=== PATIENT | female | born 1965 | race Caucasian/White ===

== ENCOUNTER → 2017-07-31 | Outpatient (CLI) | payer OTHER ==
--- NOTE | 2017-08-01 12:10 | MM ---
Reason for exam: screening (asymptomatic). Last mammogram was performed 5 years and 1 month ago. History: Patient is postmenopausal. Family history of breast cancer in maternal aunt at age 58. Benign right US cyst aspiration of the right breast, April 18, 2010. Benign US right guided VAD of the right breast, April 18, 2010. Excisional biopsy of the right breast, February 02, 2006. Took hormonal contraceptives for 15 years beginning at age 15. Physical Findings: A clinical breast exam by your physician is recommended on an annual basis and results should be correlated with mammographic findings. MG Screening Mammo w CAD Bilateral CC and MLO view(s) were taken. Prior study comparison: June 19, 2012, bilateral digital screening mammo w/CAD. March 28, 2011, CAD bilateral diagnostic mammogram. The breast tissue is heterogeneously dense. This may lower the sensitivity of mammography. There is a new suspicious mass measuring 7mm containing microcalcifications in the upper outer quadrant at middle depth of the right breast. This is just lateral and posterior to a new area of architectural distortion. No suspicious abnormality in the left breast. Coil shaped right biopsy marker is noted. ASSESSMENT: Incomplete: need additional imaging evaluation, BI-RAD 0 RECOMMENDATION: Special view mammogram of the right breast. If lesion persists on supplemental views, image directed ultrasound is recommended. [facility] will attempt to contact patient to return for supplemental views and ultrasound if indicated.
== END | disposition home or self-care (01) ==
LOC: RADMAMWWP 11:32
PROVIDERS: ATTEND Obstetrics & Gynecology
DX: Z12.31 Encounter for screening mammogram for malignant neoplasm of breast (principal)
CPT/HCPCS: 77067

== ENCOUNTER → 2017-08-08 | Outpatient (CLI) | payer OTHER ==
--- NOTE | 2017-08-08 14:16 | MM ---
Reason for exam: additional evaluation requested from abnormal screening. Last mammogram was performed less than 1 month ago. History: Patient is postmenopausal. Family history of breast cancer in maternal aunt at age 58. Benign right US cyst aspiration of the right breast, April 18, 2010. Benign US right guided VAD of the right breast, April 18, 2010. Excisional biopsy of the right breast, February 02, 2006. Took hormonal contraceptives for 15 years beginning at age 15. Physical Findings: Nurse did not find any significant physical abnormalities on exam. MG Work Up Mamm w CAD RT CC with magnification and LM with magnification view(s) were taken of the right breast. Prior study comparison: July 31, 2017, bilateral MG screening mammo w CAD. June 19, 2012, bilateral digital screening mammo w/CAD. The breast tissue is heterogeneously dense. This may lower the sensitivity of mammography. New grouped heterogeneous calcifications upper outer quadrant right breast. Chronic nodularity right breast upper outer quadrant. No persisting distortion. These results were verbally communicated with the patient and result sheet given to the patient on 08/08/17. ASSESSMENT: Suspicious, BI-RAD 4 RECOMMENDATION: Surgical consultation and stereotactic core biopsy of the right breast. Called Dr. Gomez with mammographic findings and has scheduled an appointment for the patient for 09/13/17 at 9:[address] Fishman. Biopsy scheduled for 08/16/17 at 10:00. PRELIMINARY REPORT CALLED AND FAXED TO DR. FISHMAN ON 08/08/17.
== END | disposition home or self-care (01) ==
LOC: RADMAMWWP 12:31
PROVIDERS: ATTEND Obstetrics & Gynecology
DX: R92.8 Other abnormal and inconclusive findings on diagnostic imaging of breast (principal)
CPT/HCPCS: 77065

== ENCOUNTER → 2017-08-15 | Outpatient (CLI) | payer OTHER ==
--- NOTE | 2017-08-15 11:25 | US ---
EXAMINATION TYPE: US abdomen limited DATE OF EXAM: 08/15/2017 COMPARISON: NONE CLINICAL HISTORY: R74.8 abnormal levels of liver serum enzymes. Difficult exam due to patient's body habitus and overlying bowel gas EXAM MEASUREMENTS: Liver Length: 14.3 cm Gallbladder Wall: 0.2 cm CBD: 0.3 cm Right Kidney: 10.3 x 4.6 x 4.3 cm Pancreas: Obscured by bowel gas, visualized portions slightly hyperechoic Liver: Heterogeneous, echogenic echotexture with diminished visualization of the portal triads and h emidiaphragm. This most commonly represents underlying hepatic steatosis and limits evaluation for un derlying masses. Gallbladder: wnl Evidence for sonographic Weinberg's sign: No CBD: wnl Right Kidney: No hydronephrosis or masses seen IMPRESSION: Hyperechoic hepatic echotexture most commonly related to hepatic steatosis appearing mild to moderate degree.
== END | disposition home or self-care (01) ==
LOC: RADUSWWP 09:54
PROVIDERS: ATTEND Family Medicine
DX: K76.89 Other specified diseases of liver (principal)
CPT/HCPCS: 76705

== ENCOUNTER → 2017-08-16 | Day surgery (SDC) | payer OTHER ==
[2017-08-16 09:04] VITALS: RESP 16; BMI 38.2
[2017-08-16 11:02] VITALS: BP 128/80; PULSE 71; TEMP 98.6
--- NOTE | 2017-08-16 11:42 | MM ---
EXAMINATION TYPE: MG stereo VAD BX RT DATE OF EXAM: 08/16/2017 COMPARISON: Mammogram August 08, 2017 and older studies. CLINICAL HISTORY: Abnormal mammogram, new suspicious group of microcalcifications right breast. TECHNIQUE: Stereotactic guided core biopsy of right breast with clip placement and follow-up two-view mammogram. FINDINGS: The procedure of stereotactic guided core biopsy was explained to the patient. Benefits, alternatives, and risks were discussed. An informed consent was then obtained. The [place] for biopsy was chosen. Shortness pathway was lateral approach. I performed the localization, then performed the remainder of the procedure. Overlying skin is cleansed with Betadine. Lidocaine with bicarbonate is used as anesthetic into the skin. Lidocaine with epinephrine is used as anesthetic into the deeper tissue. A vacuum assisted biopsy gun was used to obtain multiple core samples. The patient tolerated the procedure well without any immediate complication. The patient was kept in the radiology department for short stay after the procedure and then discharged home in stable condition. Targeted calcifications are identified in specimen mammogram. Post biopsy mammogram shows the clip to appear in satisfactory position relative to the targeted area of concern on the preprocedure images. No residual calcifications are identified. IMPRESSION: SUCCESSFUL, UNCOMPLICATED STEREOTACTIC GUIDED CORE BIOPSY OF AREA OF CONCERN IN THE RIGHT BREAST, FULL PATHOLOGY RESULTS TO FOLLOW. Low to intermediate index of suspicion noted at time of procedure. Pathology Results: Benign RIGHT BREAST, BIOPSY: FIBROCYSTIC CHANGES INCLUDING SCLEROSING ADENOSIS WITH CALCIFICATIONS, CYSTS AND FIBROSIS. Recommendation Follow up mammogram of the right breast in 6 months. MAILE
== END | disposition home or self-care (01) ==
LOC: RADMAMWWP 08:41
PROVIDERS: ATTEND Surgery
DX: N60.11 Diffuse cystic mastopathy of right breast (principal); N60.21 Fibroadenosis of right breast; Z88.2 Allergy status to sulfonamides
CPT/HCPCS: 88305; 19081; A4648; J2001

== ENCOUNTER → 2018-02-18 | Outpatient (CLI) | payer OTHER ==
--- NOTE | 2018-02-18 13:29 | MM ---
Reason for exam: follow-up at short interval from prior study. Last mammogram was performed 6 months ago. History: Patient is postmenopausal. Family history of breast cancer in maternal aunt at age 58. Benign MG stereo VAD BX RT of the right breast, August 16, 2017. Benign right US cyst aspiration of the right breast, April 18, 2010. Benign US right guided VAD of the right breast, April 18, 2010. Excisional biopsy of the right breast, February 02, 2006. Took hormonal contraceptives for 15 years beginning at age 15. Physical Findings: Nurse did not find any significant physical abnormalities on exam. MG Diagnostic Mammo RT w CAD CC and MLO view(s) were taken of the right breast. Prior study comparison: August 08, 2017, right breast MG work up mamm w CAD RT. July 31, 2017, bilateral MG screening mammo w CAD. The breast tissue is heterogeneously dense. This may lower the sensitivity of mammography. No significant new findings when compared with previous films. These results were verbally communicated with the patient and result sheet given to the patient on 02/18/18. ASSESSMENT: Benign, BI-RAD 2 RECOMMENDATION: Return to routine screening mammogram schedule for both breasts. Back on schedule for July 2018.
== END | disposition home or self-care (01) ==
LOC: RADMAMWWP 10:43
PROVIDERS: ATTEND Surgery
DX: R92.8 Other abnormal and inconclusive findings on diagnostic imaging of breast (principal)
CPT/HCPCS: 77065

== ENCOUNTER → 2020-09-23 | Outpatient (CLI) | payer OTHER ==
--- NOTE | 2020-09-23 12:37 | US ---
EXAMINATION TYPE: US venous doppler duplex LE LT DATE OF EXAM: 09/23/2020 12:11 PM COMPARISON: NONE CLINICAL HISTORY: I80.9 Phlebitis and thrombophlebitis. left knee pain, no h/o dvt, known Rivera's cys t SIDE PERFORMED: Left TECHNIQUE: The lower extremity deep venous system is examined utilizing real time linear array sonog zeenat with graded compression, doppler sonography and color-flow sonography. VESSELS IMAGED: Common Femoral Vein Deep Femoral Vein Greater Saphenous Vein * Femoral Vein Popliteal Vein Small Saphenous Vein * Proximal Calf Veins (* superficial vessels) There is normal flow, compressibility, vascular waveforms. Left Leg: Negative for DVT Crescentic anechoic focus is present in the popliteal fossa measuring 2.7 x 2 cm IMPRESSION: No evident deep venous thrombosis involving the deep veins of left lower extremity at or central to the left knee. Incidental semimembranosus gastrocnemius cyst.
== END | disposition home or self-care (01) ==
LOC: RADUSWWP 11:37
PROVIDERS: ATTEND Orthopaedic Surgery
DX: I80.9 Phlebitis and thrombophlebitis of unspecified site (principal)

== ENCOUNTER → 2022-01-25 | Outpatient (CLI) | payer OTHER ==
--- NOTE | 2022-01-26 08:15 | MM ---
Reason for Exam: Screening (asymptomatic). Last mammogram was performed 4 year(s) and 6 month(s) ago. Patient History: Menarche at age 10. First Full-Term at age 18. Postmenopausal. Hormonal Contraceptives for 15 years from age 15 until age 30. 02/02/2006, Excisional Biopsy on the Right side. 08/16/2017, Benign Core Biopsy on the right side. 04/18/2010, Benign Core Biopsy on the right side. 04/18/2010, Benign Cyst Aspiration on the right side. Maternal aunt had breast cancer, age 58. Risk Values: Joanie 5 year model risk: 1.8%. NCI Lifetime model risk: 10.2%. Prior Study Comparison: 03/28/2011 Bilateral Diagnostic Mammogram, [facility]. 06/19/2012 Bilateral Screening Mammogram, [facility]. 07/31/2017 Bilateral Screening Mammogram, [facility]. 08/08/2017 Right Diagnostic Mammogram, [facility]. 02/18/2018 Right Diagnostic Mammogram, [facility]. Tissue Density: The breast tissue is heterogeneously dense. This may lower the sensitivity of mammography. Findings: Analyzed By CAD. There are 2 adjacent biopsy clips in the upper outer aspect of the right breast on current study with some persistent tiny round grouped calcifications at this level redemonstrated. There is oval 11 mm focal asymmetric density in the posterior depth upper outer aspect left breast that warrants further workup with additional scattered smaller round masses anterior to this felt present. Overall Assessment: Incomplete: need additional imaging evaluation, BI-RAD 0 Management: Diagnostic Breast Ultrasound of the left breast. Targeted ultrasound left breast upper outer quadrant. Electronically signed and approved by: Volodymyr Rivera M.D.
--- NOTE | 2022-01-26 08:15 | MM ---
Reason for Exam: Screening (asymptomatic). Last mammogram was performed 4 year(s) and 6 month(s) ago. Patient History: Menarche at age 10. First Full-Term at age 18. Postmenopausal. Hormonal Contraceptives for 15 years from age 15 until age 30. 02/02/2006, Excisional Biopsy on the Right side. 08/16/2017, Benign Core Biopsy on the right side. 04/18/2010, Benign Core Biopsy on the right side. 04/18/2010, Benign Cyst Aspiration on the right side. Maternal aunt had breast cancer, age 58. Risk Values: Joanie 5 year model risk: 1.8%. NCI Lifetime model risk: 10.2%. Prior Study Comparison: 03/28/2011 Bilateral Diagnostic Mammogram, [facility]. 06/19/2012 Bilateral Screening Mammogram, [facility]. 07/31/2017 Bilateral Screening Mammogram, [facility]. 08/08/2017 Right Diagnostic Mammogram, [facility]. 02/18/2018 Right Diagnostic Mammogram, [facility]. Tissue Density: The breast tissue is heterogeneously dense. This may lower the sensitivity of mammography. Findings: Analyzed By CAD. There are 2 adjacent biopsy clips in the upper outer aspect of the right breast on current study with some persistent tiny round grouped calcifications at this level redemonstrated. There is oval 11 mm focal asymmetric density in the posterior depth upper outer aspect left breast that warrants further workup with additional scattered smaller round masses anterior to this felt present. Overall Assessment: Incomplete: need additional imaging evaluation, BI-RAD 0 Management: Diagnostic Breast Ultrasound of the left breast. Targeted ultrasound left breast upper outer quadrant. Electronically signed and approved by: Volodymyr Rivera M.D.
== END | disposition home or self-care (01) ==
LOC: RADMAMWWP 07:43
PROVIDERS: ATTEND Family Medicine
DX: Z12.31 Encounter for screening mammogram for malignant neoplasm of breast (principal); Z78.0 Asymptomatic menopausal state; Z80.3 Family history of malignant neoplasm of breast
CPT/HCPCS: 77067

== ENCOUNTER → 2022-02-03 | Outpatient (CLI) | payer OTHER ==
--- NOTE | 2022-02-03 10:30 | USB ---
Reason for Exam: Additional evaluation requested from abnormal screening. Patient History: Menarche at age 10. First Full-Term at age 18. Postmenopausal. Hormonal Contraceptives for 15 years from age 15 until age 30. 02/02/2006, Excisional Biopsy on the Right side. 08/16/2017, Benign Core Biopsy on the right side. 04/18/2010, Benign Core Biopsy on the right side. 04/18/2010, Benign Cyst Aspiration on the right side. Maternal aunt had breast cancer, age 58. Risk Values: Joanie 5 year model risk: 1.8%. NCI Lifetime model risk: 10.2%. Technique: Method: Targeted. Prior Study Comparison: 08/08/2017 Right Diagnostic Mammogram, [facility]. 02/18/2018 Right Diagnostic Mammogram, [facility]. 01/25/2022 Bilateral MG screening mammo w CAD, [facility]. Findings: The upper outer quadrant of the left breast, the axilla of the left breast and the retroareolar of the left breast were scanned. Cyst cluster noted at the 1:00 measuring 7 x 3 x 3 mm. No solid masses seen. Overall Assessment: Benign, BI-RAD 2 Management: Screening Mammogram of both breasts in 1 year. A clinical breast exam by your physician is recommended on an annual basis and results should be correlated with mammographic findings. This exam should not preclude additional follow-up of suspicious palpable abnormalities. Results were given to the patient verbally at the time of exam. Electronically signed and approved by: Trace Rodriguez M.D. Radiologis
== END | disposition home or self-care (01) ==
LOC: RADUSWWP 09:51
PROVIDERS: ATTEND Family Medicine
DX: R92.8 Other abnormal and inconclusive findings on diagnostic imaging of breast (principal); Z80.3 Family history of malignant neoplasm of breast; Z78.0 Asymptomatic menopausal state

== ENCOUNTER → 2022-07-07 | Outpatient (CLI) | payer OTHER ==
[2022-07-07 15:08] LABS: African American GFR (CKD) 109.9 (60.0-200.0); Anion Gap 9.1 mmol/L (10.00-18.00); BUN/Creat Ratio 22.71 Ratio (12.00-20.00); Blood Urea Nitrogen 15.9 mg/dL (9.0-27.0); Calcium 9.8 mg/dL (8.7-10.3); Carbon Dioxide 31.5 mmol/L (20.0-27.5); Non-African American GFR(CKD) 94.8 (60.0-200.0); Potassium 4.7 mmol/L (3.5-5.5)
== END | disposition home or self-care (01) ==
LOC: LABWHC1 09:16
PROVIDERS: ATTEND Family Medicine
DX: R89.9 Unspecified abnormal finding in specimens from other organs, systems and tissues (principal)
CPT/HCPCS: 36415; 80048

== ENCOUNTER → 2022-11-29 | Outpatient (CLI) | payer OTHER ==
[2022-11-29 16:12] LABS: Appearance,Urine Clear (Clear); Bilirubin,Urine Negative (Negative); Blood,Urine Negative (Negative); Color,Urine Yellow (Yellow); Ketones,Urine Negative (Negative); Nitrite,Urine Negative (Negative); PH, Urine 7.5; Specific Gravity,Urine 1.017 (1.001-1.030); Urobilinogen,Urine 0.2 E.U./DL
[2022-11-29 16:25] LABS: HCT 42.1 % (37.2-46.3); HGB 13.8 d/dL (12.0-15.0); MCH 30.6 pg (27.0-32.0); MCHC 32.8 d/dL (32.0-37.0); MCV 93.3 FL (80.0-97.0); Mean Platelet Volume 10.4 FL (9.5-12.2); NRBC Per 100 WBC 0 X 10*3/uL (0.00-0.01); Platelet Count 302 X 10*3/uL (140-440); RBC 4.51 X 10*6/uL (4.10-5.20); RDW 13.2 % (11.5-14.5); WBC 9.96 X 10*3/uL (4.50-10.00)
[2022-11-29 17:08] LABS: ALT 73 U/L (8-44); AST 43 U/L (13-35); Albumin 4.6 d/dL (3.8-4.9); Albumin/Globulin Ratio 1.92 Ratio (1.60-3.17); Alkaline Phosphatase 77 U/L (41-126); Blood Urea Nitrogen 17.5 mg/dL (9.0-27.0); Calcium 10.1 mg/dL (8.7-10.3); Chloride 102 mmol/L (96-109); Chol/HDL Ratio 2.88 Ratio; Globulin 2.4 d/dL (1.6-3.3); Glucose 113 mg/dL (70-110); LDL Cholesterol,Calculated 103.5 mg/dL (0.0-131.0); Potassium 4.6 mmol/L (3.5-5.5); Sodium 143 mmol/L (135-145); Total Bilirubin 0.4 mg/dL (0.3-1.2); VLDL Calculation 12.72 mg/dL (5.00-40.00)
[2022-11-29 21:29] LABS: Microalbumin Creatinine Ratio <25 mg/g Cr (0-30); Urine Creatinine 48.2 mg/dL (28.0-217.0)
== END | disposition home or self-care (01) ==
LOC: LABWHC1 09:50
PROVIDERS: ATTEND Family Medicine
DX: Z00.00 Encounter for general adult medical examination without abnormal findings (principal); E11.9 Type 2 diabetes mellitus without complications
CPT/HCPCS: 36415; 80053; 80061; 81003; 82043; 82306; 82570; 83036; 85027

== ENCOUNTER → 2023-01-13 | Outpatient (CLI) | payer OTHER ==
[2023-01-13 14:40] LABS: ALT 31 U/L (8-44); AST 26 U/L (13-35); GGT 12 U/L (0-38)
== END | disposition home or self-care (01) ==
LOC: LABWHC1 08:09
PROVIDERS: ATTEND Family Medicine
DX: R94.5 Abnormal results of liver function studies (principal)
CPT/HCPCS: 36415; 82977; 84450; 84460

== ENCOUNTER → 2023-01-31 | Outpatient (CLI) | payer OTHER ==
--- NOTE | 2023-02-01 08:55 | MM ---
Reason for Exam: Screening (asymptomatic). Last screening mammogram was performed 12 month(s) ago. Patient History: Menarche at age 10. First Full-Term at age 18. Postmenopausal. Hormonal Contraceptives for 15 years from age 15 until age 30. 02/02/2006, Excisional Biopsy on the Right side. 08/16/2017, Benign Core Biopsy on the right side. 04/18/2010, Benign Core Biopsy on the right side. 04/18/2010, Benign Cyst Aspiration on the right side. Maternal aunt had breast cancer, age 58. Risk Values: Joanie 5 year model risk: 1.9%. NCI Lifetime model risk: 10.0%. Prior Study Comparison: 08/08/2017 Right Diagnostic Mammogram, [facility]. 02/18/2018 Right Diagnostic Mammogram, [facility]. 01/25/2022 Bilateral MG screening mammo w CAD, [facility]. Tissue Density: The breast tissue is heterogeneously dense. This may lower the sensitivity of mammography. Findings: Analyzed By CAD. There is no suspicious group of microcalcifications or new suspicious mass in either breast. Stable chronic nodularity within both breasts. There are 2 biopsy clips within the right breast. Overall Assessment: Benign, BI-RAD 2 Management: Screening Mammogram of both breasts in 1 year. A clinical breast exam by your physician is recommended on an annual basis and results should be correlated with mammographic findings. Note on Joanie scores and lifetime risk: 1. A Joanie score greater than 3% is considered moderate risk. If this is the case, consider specialist referral to assess eligibility for a risk reducing agent. If overall lifetime risk for the development of breast cancer is 20% or higher, the patient may qualify for future screening with alternating mammogram and breast MRI. Electronically signed and approved by: Zev Chandler D.O.
== END | disposition home or self-care (01) ==
LOC: RADMAMWWP 09:02
PROVIDERS: ATTEND Family Medicine
DX: Z12.31 Encounter for screening mammogram for malignant neoplasm of breast (principal); Z78.0 Asymptomatic menopausal state; Z80.3 Family history of malignant neoplasm of breast
CPT/HCPCS: 77067

== ENCOUNTER → 2023-05-16 | Outpatient (CLI) | payer OTHER ==
[2023-05-16 15:51] LABS: HCT 43.6 % (37.2-46.3); HGB 14.2 g/dL (12.0-15.0); MCH 30.5 pg (27.0-32.0); MCHC 32.6 g/dL (32.0-37.0); MCV 93.6 FL (80.0-97.0); Mean Platelet Volume 10.7 FL (9.5-12.2); NRBC Per 100 WBC 0 X 10*3/uL (0.00-0.01); Platelet Count 312 X 10*3/uL (140-440); RBC 4.66 X 10*6/uL (4.10-5.20); RDW 12.9 % (11.5-14.5); WBC 9.85 X 10*3/uL (4.50-10.00)
[2023-05-16 16:37] LABS: ALT 18 U/L (8-44); AST 18 U/L (13-35); BUN/Creat Ratio 24.86 Ratio (12.00-20.00); Blood Urea Nitrogen 17.4 mg/dL (9.0-27.0); Calcium 10.1 mg/dL (8.7-10.3); Carbon Dioxide 28.4 mmol/L (21.6-31.8); Chloride 101 mmol/L (96-109); Glucose 115 mg/dL (70-110); Potassium 4.4 mmol/L (3.5-5.5); Sodium 142 mmol/L (135-145)
== END | disposition home or self-care (01) ==
LOC: LABWHC1 11:40
PROVIDERS: ATTEND Family Medicine
DX: I10 Essential (primary) hypertension (principal); E11.9 Type 2 diabetes mellitus without complications; E55.9 Vitamin D deficiency, unspecified
CPT/HCPCS: 36415; 80048; 82306; 83036; 84450; 84460; 85027

== ENCOUNTER → 2023-12-24 | Outpatient (CLI) | payer OTHER ==
--- NOTE | 2023-12-24 14:38 | XR ---
Left knee. HISTORY: Trauma. COMPARISON: None. TECHNIQUE: 3 views of the left knee were obtained. FINDINGS: There is no fracture, dislocation or focal intravenous abnormality. No joint effusion. There is moderate to marked narrowing of the medial compartment with marked hypertrophic spurring. La teral compartment is well preserved. There is narrowing of the patellofemoral compartment. IMPRESSION: 1. No acute trauma. 2. Osteoarthritis of the knee, greatest in the medial compartment as described above. [facility], , 12/24/2023 2:35 PM
== END | disposition home or self-care (01) ==
LOC: RADXRMAIN 13:57
PROVIDERS: ATTEND Emergency Medicine
DX: S80.02XA Contusion of left knee, initial encounter

== ENCOUNTER → 2024-02-06 | Outpatient (CLI) | payer OTHER ==
[2024-02-06 16:04] LABS: HCT 42.2 % (37.2-46.3); HGB 13.5 g/dL (12.0-15.0); MCH 30.1 pg (27.0-32.0); MCV 94.2 FL (80.0-97.0); Mean Platelet Volume 10.8 FL (9.5-12.2); NRBC Per 100 WBC 0 X 10*3/uL (0.00-0.01); Platelet Count 297 X 10*3/uL (140-440); RBC 4.48 X 10*6/uL (4.10-5.20); RDW 12.7 % (11.5-14.5); WBC 8.82 X 10*3/uL (4.50-10.00)
[2024-02-06 16:10] LABS: Appearance,Urine Clear (Clear); Bilirubin,Urine Negative (Negative); Blood,Urine Negative (Negative); Color,Urine Yellow (Yellow); Ketones,Urine Negative (Negative); Nitrite,Urine Negative (Negative); PH, Urine 6.5; Urobilinogen,Urine 0.2 E.U./DL
[2024-02-06 16:50] LABS: ALT 27 U/L (8-44); AST 21 U/L (13-35); Albumin 4.4 g/dL (3.8-4.9); Albumin/Globulin Ratio 1.76 Ratio (1.60-3.17); Alkaline Phosphatase 69 U/L (41-126); BUN/Creat Ratio 23.86 Ratio (12.00-20.00); Blood Urea Nitrogen 16.7 mg/dL (9.0-27.0); Calcium 9.5 mg/dL (8.7-10.3); Carbon Dioxide 28.1 mmol/L (21.6-31.8); Chloride 104 mmol/L (96-109); Chol/HDL Ratio 2.87 Ratio; Globulin 2.5 g/dL (1.6-3.3); Glucose 112 mg/dL (70-110); LDL Cholesterol,Calculated 102.7 mg/dL (0.0-131.0); Potassium 4.5 mmol/L (3.5-5.5); Sodium 143 mmol/L (135-145); Total Bilirubin 0.4 mg/dL (0.3-1.2); Total Protein 6.9 g/dL (6.2-8.2); VLDL Calculation 18.52 mg/dL (5.00-40.00)
[2024-02-07 00:04] LABS: Microalbumin Creatinine Ratio <12 mg/g Cr (0-30)
--- NOTE | 2024-02-07 12:38 | MM ---
Reason for Exam: Screening (asymptomatic). Last screening mammogram was performed 12 month(s) ago. Patient History: Menarche at age 10. First Full-Term at age 18. Postmenopausal. Hormonal Contraceptives for 15 years from age 15 until age 30. 02/02/2006, Excisional Biopsy on the Right side. 08/16/2017, Benign Core Biopsy on the right side. 04/18/2010, Benign Core Biopsy on the right side. 04/18/2010, Benign Cyst Aspiration on the right side. Maternal aunt had breast cancer, age 58. Risk Values: Joanie 5 year model risk: 1.9%. NCI Lifetime model risk: 9.7%. Prior Study Comparison: 02/18/2018 Right Diagnostic Mammogram, [facility]. 01/25/2022 Bilateral MG screening mammo w CAD, [facility]. 01/31/2023 Bilateral MG screening mammo w CAD, [facility]. Tissue Density: There are scattered areas of fibroglandular density. Findings: Analyzed By CAD. Unchanged focal asymmetry and post excisional changes lateral right breast. 2 microclips right breast from prior biopsies. Chronic nodularity on the left and unchanged areas of asymmetric density. There is a asymmetric density central inner right CC view middle depth which is more defined. This may represent superimposition shadow but further evaluation is recommended. Otherwise, no significant change. Overall Assessment: Incomplete: need additional imaging evaluation, BI-RAD 0 Management: Special View Mammogram of the right breast. Additional views to include spot 3-D CC, 3-D CC rolled, and 3-D LM views. [facility] will attempt to contact patient to return for supplemental views and ultrasound if indicated. [facility], , 02/07/2024 12:35 PM. Electronically signed and approved by: Sofi Woodard M.D. Radiologist
== END | disposition home or self-care (01) ==
LOC: RADMAMWWP 10:20
PROVIDERS: ATTEND Family Medicine
DX: Z12.31 Encounter for screening mammogram for malignant neoplasm of breast (principal); R92.323 Mammographic fibroglandular density, bilateral breasts; Z78.0 Asymptomatic menopausal state; Z80.3 Family history of malignant neoplasm of breast
CPT/HCPCS: 77067; 80053; 80061; 81003; 82043; 82306; 82570; 83036; 84443; 85027

== ENCOUNTER → 2024-02-13 | Outpatient (CLI) | payer OTHER ==
--- NOTE | 2024-02-13 10:19 | MM ---
Reason for Exam: Additional evaluation requested from abnormal screening. Last screening mammogram was performed less than 1 month ago. Patient History: Menarche at age 10. First Full-Term at age 18. Postmenopausal. Hormonal Contraceptives for 15 years from age 15 until age 30. 02/02/2006, Excisional Biopsy on the Right side. 08/16/2017, Benign Core Biopsy on the right side. 04/18/2010, Benign Core Biopsy on the right side. 04/18/2010, Benign Cyst Aspiration on the right side. Maternal aunt had breast cancer, age 58. Risk Values: Joanie 5 year model risk: 1.9%. NCI Lifetime model risk: 9.7%. Tissue Density: Right: The breasts are heterogeneously dense, which may obscure small masses. Findings: Analyzed By CAD. The pattern is stable. No persistent nodularity is identified within the left breast on compression lateral views. Finding may be summation density. Six-month follow-up recommended. Overall Assessment: Probably benign, BI-RAD 3 Management: Diagnostic Mammogram of the right breast in 6 months. A negative mammogram report should not preclude additional follow up of suspicious palpable abnormalities. Patient should continue monthly self breast exam. A clinical breast exam by your physician is recommended on an annual basis and results should be correlated with mammographic findings. Note on Joanie scores and lifetime risk: 1. A Joanie score greater than 3% is considered moderate risk. If this is the case, consider specialist referral to assess eligibility for a risk reducing agent. 2. If overall lifetime risk for the development of breast cancer is 20% or higher, the patient may qualify for future screening with alternating mammogram and breast MRI. [facility], , 02/13/2024 10:17 AM. Electronically signed and approved by: Morris Prajapati D.O. Radiologis
== END | disposition home or self-care (01) ==
LOC: RADMAMWWP 09:56
PROVIDERS: ATTEND Family Medicine
DX: R92.8 Other abnormal and inconclusive findings on diagnostic imaging of breast (principal); Z78.0 Asymptomatic menopausal state; Z80.3 Family history of malignant neoplasm of breast; R92.331 Mammographic heterogeneous density, right breast
CPT/HCPCS: 77061; 77065

== ENCOUNTER → 2024-08-13 | Outpatient (CLI) | payer OTHER ==
[2024-08-13 18:58] LABS: Basophils # (A) 0.04 X 10*3/uL (0.00-0.10); Basophils % (A) 0.4 %; Eosinophils % (A) 0.9 %; HCT 42.1 % (37.2-46.3); HGB 13.5 g/dL (12.0-15.0); Lymphocytes # (A) 3.92 X 10*3/uL (0.90-5.00); Lymphocytes % (A) 35.1 %; MCH 30.4 pg (27.0-32.0); MCHC 32.1 g/dL (32.0-37.0); MCV 94.8 FL (80.0-97.0); Mean Platelet Volume 10.5 FL (9.5-12.2); Monocytes # (A) 0.62 X 10*3/uL (0.20-1.00); Monocytes % (A) 5.6 %; NRBC Per 100 WBC 0 X 10*3/uL (0.00-0.01); Neutrophils # (A) 6.46 X 10*3/uL (1.80-7.70); Neutrophils % (A) 57.7 %; Platelet Count 304 X 10*3/uL (140-440); RBC 4.44 X 10*6/uL (4.10-5.20); RDW 13.2 % (11.5-14.5); WBC 11.17 X 10*3/uL (4.50-10.00)
[2024-08-13 19:42] LABS: ALT 28 U/L (8-44); AST 24 U/L (13-35); Albumin 4.3 g/dL (3.8-4.9); Albumin/Globulin Ratio 1.79 Ratio (1.60-3.17); Alkaline Phosphatase 64 U/L (41-126); Blood Urea Nitrogen 20.7 mg/dL (9.0-27.0); Calcium 9.2 mg/dL (8.7-10.3); Carbon Dioxide 24.1 mmol/L (21.6-31.8); Chloride 104 mmol/L (96-109); Globulin 2.4 g/dL (1.6-3.3); Glucose 116 mg/dL (70-110); Potassium 4.4 mmol/L (3.5-5.5); Sodium 140 mmol/L (135-145); Total Bilirubin 0.3 mg/dL (0.3-1.2); Total Protein 6.7 g/dL (6.2-8.2)
== END | disposition home or self-care (01) ==
LOC: LABWHC1 13:57
PROVIDERS: ATTEND Family Medicine
DX: I10 Essential (primary) hypertension (principal); E11.9 Type 2 diabetes mellitus without complications; E55.9 Vitamin D deficiency, unspecified; R42 Dizziness and giddiness
CPT/HCPCS: 36415; 80053; 82306; 83036; 85025